=== PATIENT | male | born 1960 | race Caucasian/White ===

== ENCOUNTER 2018-05-12 17:27 | Emergency (ER) | payer OTHER ==
[2018-05-12] MEDS ORDERED: TORAdol 30 mg Injection IM ONE (17:50)
[2018-05-12] MEDS ORDERED: Norflex 60 MG/2 ML IM ONE (17:50)
[2018-05-12] MEDS ORDERED: TORAdol 30 mg Injection ONE (17:52)
[2018-05-12] MEDS ORDERED: Norflex 60 MG/2 ML ONE (17:53)
--- NOTE | 2018-05-12 17:57 | ERPHSYRPT ---
- History of Present Illness Time Seen by Provider: 05/12/18 17:46 Patient Subjective Stated Complaint: PT states "I fell on saturday and ever since then I have had this pain on my right lower back. It feels like the muscles are spasming." Triage Nursing Assessment: Pt alert and oriented X 3, skin pwd. PT ambulates slowly with a stiff upright gait, moaning. Pt able to speakin clear full sentenecs. Pt back has no bruising or swelling noted. Physician History: 58-year-old white male arrives with complaint of pain in his right low thoracic region symptoms for 2 days. According to patient he fell 2 days ago he states since he fell he has been experiencing pain in the right low thoracic region posteriorly feels like a spasm. He denies any urinary symptoms he is not short of breath he is not having pain with deep breathing. Past medical history includes diabetes type 2, osteoarthritis, Lyme disease. Past surgical history right arm surgery. Patient is chronically on hydrocodone 10/325 has filled 60 disease on May 06, 2018 He is also chronically on morphine sulfate extended release 30 mg he filled 60 of these on May 06, 2018 Patient states he has been taking his pain medication. Timing/Duration: day(s), constant Severity: moderate (2 days) Modifying Factors: Improves With: movement Associated Symptoms: No nausea, No vomiting, No abdominal pain, No shortness of breath, No heartburn, No diaphoresis, No cough, No chills, No chest pain, No fever, No headaches, No loss of appetite, No malaise, No rash, No syncope, No seizure, No weakness Allergies/Adverse Reactions: No Known Drug Allergies Allergy (Verified 05/12/18 17:41) Home Medications: Hydrocodone/Acetaminophen [Marlow 10-325 Tablet] 1 each PO BID 03/16/12 [History] Amitriptyline HCl 75 mg PO DAILY 09/21/15 [History] Armodafinil [Nuvigil] 250 mg PO DAILY 09/21/15 [History] Cholecalciferol (Vitamin D3) [Vitamin D] 1,000 unit PO 2XW 09/21/15 [History] Empagliflozin [Jardiance] 25 mg PO DAILY 09/21/15 [History] Liraglutide [Victoza 2-Thee] 1.8 ml PO DAILY 09/21/15 [History] Lisinopril 80 mg PO BID 09/21/15 [History] Morphine Sulfate [Alyson] 30 mg PO BID 09/21/15 [History] Tamsulosin HCl 0.4 mg PO DAILY 09/21/15 [History] Insulin Glulisine [Apidra] 100 unit SQ DAILY 05/12/18 [History] Hx Tetanus, Diphtheria Vaccination/Date Given: No Hx Influenza Vaccination/Date Given: No Hx Pneumococcal Vaccination/Date Given: No Immunizations Up to Date: Yes - Review of Systems Constitutional: No Fever, No Chills Eyes: No Symptoms Ears, Nose, & Throat: No Symptoms Respiratory: No Cough, No Dyspnea Cardiac: No Chest Pain, No Edema, No Syncope Abdominal/Gastrointestinal: No Abdominal Pain, No Nausea, No Vomiting, No Diarrhea Genitourinary Symptoms: No Dysuria Musculoskeletal: Back Pain (pain right low thoracic region for 2 days after falling) Skin: No Rash Neurological: No Dizziness, No Focal Weakness, No Sensory Changes Psychological: No Symptoms Endocrine: No Symptoms All Other Systems: Reviewed and Negative - Past Medical History Pertinent Past Medical History: Yes Neurological History: Other ENT History: No Pertinent History Cardiac History: No Pertinent History Respiratory History: No Pertinent History Endocrine Medical History: Diabetes Type II Musculoskeletal History: Osteoarthritis GI Medical History: No Pertinent History History: No Pertinent History Psycho-Social History: No Pertinent History Male Reproductive Disorders: No Pertinent History Other Medical History: lyme disease. under tx now - Past Surgical History Past Surgical History: Yes Neuro Surgical History: No Pertinent History Cardiac: No Pertinent History Respiratory: No Pertinent History Gastrointestinal: No Pertinent History Genitourinary: No Pertinent History Musculoskeletal: No Pertinent History Male Surgical History: No Pertinent History Other Surgical History: RIGHT ARM SURGERY - Social History Smoking Status: Never smoker Exposure to second hand smoke: No Drug Use: none Patient Lives Alone: No - Nursing Vital Signs Nursing Vital Signs: Initial Vital Signs Temperature 99.1 F 05/12/18 17:36 Pulse Rate 87 05/12/18 17:36 Respiratory Rate 16 05/12/18 17:36 Blood Pressure 180/106 05/12/18 17:36 O2 Sat by Pulse Oximetry 96 05/12/18 17:36 Pain Scale Pain Intensity [] 7 Pain Intensity 4 - Physical Exam General Appearance: mild distress Eye Exam: PERRL/EOMI, eyes nml inspection Ears, Nose, Throat Exam: normal ENT inspection, TMs normal, pharynx normal, moist mucous membranes Neck Exam: normal inspection, non-tender, supple, full range of motion Respiratory Exam: normal breath sounds, lungs clear, No respiratory distress Cardiovascular Exam: regular rate/rhythm, normal heart sounds, normal peripheral pulses Back Exam: normal range of motion, CVA tenderness, other (pain right low thoracicregion posteriorly with palpation), No vertebral tenderness Extremity Exam: normal inspection, normal range of motion, pelvis stable Neurologic Exam: alert, oriented x 3, cooperative, 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, normal mood/affect, nml cerebellar function, nml station & gait, sensation nml, No motor deficits Skin Exam: normal color, warm, dry, No rash Lymphatic Exam: No adenopathy SpO2 Interpretation: normal (96%) SpO2: 96 Oxygen Delivery: Room Air - Course Nursing assessment & vital signs reviewed: Yes - Radiology Exams Chest X-ray Interpretation: Interpreted by me, Negative, No Fracture, No Pneumonia, No Pneumothorax, Other (cxr: no acute disease process noted) Right Ribs X-ray Interpretation: Interpreted by me (no fractures) Ordered Tests: Active Orders 24 hr Category Date Time Status CHEST 1 VIEW (PORTABLE) Stat Exams 05/12/18 17:52 Taken RIBS UNILATERAL Stat Exams 05/12/18 18:29 Taken Medication Summary Discontinued Medications Generic Name Dose Route Start Last Admin Trade Name Isael PRN Reason Stop Dose Admin Ketorolac Tromethamine 60 mg 05/12/18 17:50 05/12/18 17:54 Toradol 30 Mg Injection IM 05/12/18 17:51 60 mg STAT ONE Administration Ketorolac Tromethamine Confirm 05/12/18 17:52 Toradol 30 Mg Injection Administered 05/12/18 17:53 Dose 60 mg .ROUTE .STK-MED ONE Orphenadrine Citrate 60 mg 05/12/18 17:50 05/12/18 17:55 Norflex 60 Mg/2 Ml IM 05/12/18 17:51 60 mg STAT ONE Administration Orphenadrine Citrate Confirm 05/12/18 17:53 Norflex 60 Mg/2 Ml Administered 05/12/18 17:54 Dose 60 mg .ROUTE .STK-MED ONE - Progress Progress: improved Progress Note: 05/12/18 18:47 58-year-old white male with history of diabetes, osteoarthritis, Lyme disease who is on both hydrocodone and morphine for pain secondary to his Lyme disease. Arrives with complaint of pain in his back right posterior thoracic region point tender with palpation occurring with movement. Patient apparently fell 2 days ago prior to the onset of the pain. X-ray of the patient's chest no acute disease processes noted. X-ray right ribs no fractures are noted. Both of these are my read. Patient is given Toradol 60 mg IM and Norflex 60 mg IM with markedly improvement in his pain he states he still has some pain but he is feeling markedly better. Will go ahead and discharge patient with a prescription for Flexeril 10 mg 3 times a day for 5 days. Patient is continue his ibuprofen and morphine ER as prescribed by his family doctor, Patient is also advised to take ibuprofen every 6 hours as needed with food for pain. Patient advised to follow-up with his family doctor - Departure Time of Disposition: 18:50 Departure Disposition: Home Clinical Impression: Accidental fall Qualifiers: Encounter type: initial encounter Qualified Code(s): W19.XXXA - Unspecified fall, initial encounter Back pain Qualifiers: Back pain location: thoracic back pain Chronicity: acute Back pain laterality: right Qualified Code(s): M54.6 - Pain in thoracic spine Condition: Fair Critical Care Time: No Referrals: VIKI PERDUE MD [Primary Care Provider] - Additional Instructions: Return home. Flexeril 10 mg orally 3 times a day for 5 days. Continue hydrocodone and morphine ER as prescribed by your family doctor. ibuprofen every 6 hours as needed for pain with food. Follow-up with your family doctor if symptoms are worse, no better in 48-72 hours, or persist longer than one week. Return for acute distress or for severe symptoms. Prescriptions: Cyclobenzaprine HCl [Flexeril] 10 mg PO TID #15 tablet
[2018-05-12 18:40] VITALS: BP 180/102; PULSE 76
[2018-05-12 18:45] VITALS: O2SAT 96
--- NOTE | 2018-05-13 08:53 | XRAY ---
Indication: Pain following fall. Comparison: None Single frontal chest is inflated and clear. Heart and mediastinal structures within normal limits. Bony thorax intact. Right ribs reported separately.
--- NOTE | 2018-05-13 08:53 | XRAY ---
Indication: Pain following fall. Comparison: None 2 views of the right ribs demonstrates nondisplaced posterior 10th rib fracture and mild acromioclavicular degenerative arthropathy. No other bony, articular, or soft tissue abnormalities. Comment: Fracture not reported on preliminary interpretation by the ER clinician. Telephone report given to Dr. Wilson at 0848 hrs. on May 13, 2018.
== END 2018-05-12 19:11 | disposition home or self-care (01) ==
LOC: ED 17:27
DX: M54.6 Pain in thoracic spine (principal); W19.XXXA Unspecified fall, initial encounter; Z79.899 Other long term (current) drug therapy
CPT/HCPCS: 71045; 71100; 96372; 99284; J1885; J2360

== ENCOUNTER 2020-01-06 09:51 | Day surgery (SDC) | payer OTHER ==
[2020-01-06] MEDS ORDERED: Sensorcaine 0.25% 10 ML IJ ONE (09:52)
[2020-01-06] MEDS ORDERED: Xylocaine 1% Vial 30 ML PF IJ ONE (09:52)
[2020-01-06] MEDS ORDERED: Ketamine HCl 50 MG/ML ONE (10:57)
[2020-01-06] MEDS ORDERED: DIPRIVAN 200 MG/20 ML IV ONE (10:57)
[2020-01-06] MEDS ORDERED: Lactated Ringers 1,000 ML IV ONE (15:17)
--- NOTE | 2020-01-06 16:31 | XRAY ---
53 seconds fluoroscopy time in surgery for left lumbar sympathetic nerve block.
--- NOTE | 2020-01-09 19:05 | XRAY ---
Indication: Left lumbar sympathetic nerve block. Intraoperative fluoroscopy was provided for 53 seconds. 5 digital spot images submitted for interpretation demonstrate posterior needle tip projected anterior left lateral to I believe the L3 segment. A small amount of contrast has been injected for needle tip placement. Correlate with intraoperative findings/report.
== END 2020-01-06 11:30 | disposition home or self-care (01) ==
LOC: SDC-PAIN 09:51
PROVIDERS: ATTEND Psychiatry & Neurology Pain Medicine
DX: G90.522 Complex regional pain syndrome I of left lower limb (principal); E11.9 Type 2 diabetes mellitus without complications; I10 Essential (primary) hypertension; A69.20 Lyme disease, unspecified; G57.93 Unspecified mononeuropathy of bilateral lower limbs; Z79.899 Other long term (current) drug therapy
CPT/HCPCS: 64520; 72100; 77002; 82962; J2001; J2704; Q9966

== ENCOUNTER 2020-02-03 09:03 | Day surgery (SDC) | payer OTHER ==
[2020-02-03] MEDS ORDERED: Xylocaine 1% Vial 30 ML PF IJ ONE (09:04)
[2020-02-03] MEDS ORDERED: Sensorcaine 0.25% 10 ML IJ ONE (09:04)
[2020-02-03] MEDS ORDERED: DIPRIVAN 200 MG/20 ML IV ONE (11:01)
[2020-02-03] MEDS ORDERED: Ketamine HCl 50 MG/ML ONE (11:01)
--- NOTE | 2020-02-03 12:24 | XRAY ---
Indication: Left lumbar sympathetic nerve block. Intraoperative fluoroscopy was provided for 26 seconds. 2 digital spot images submitted for interpretation demonstrates posterior needle tip projecting anterior left lateral to a mid lumbar segment, probably L3. Small amount of contrast injected for needle tip placement. Rin with intraoperative findings/report.
--- NOTE | 2020-02-03 14:36 | XRAY ---
26 seconds of fluoroscopy was used in surgery for a left lumbar sympathetic nerve block.
[2020-02-03] MEDS ORDERED: Lactated Ringers 1,000 ML IV ONE (14:53)
== END 2020-02-03 11:36 | disposition home or self-care (01) ==
LOC: SDC-PAIN 09:03
PROVIDERS: ATTEND Psychiatry & Neurology Pain Medicine
DX: G90.522 Complex regional pain syndrome I of left lower limb (principal); E11.9 Type 2 diabetes mellitus without complications; A69.20 Lyme disease, unspecified; I10 Essential (primary) hypertension; Z79.899 Other long term (current) drug therapy
CPT/HCPCS: 64520; 72100; 77002; 82962; J2001; J2704; Q9966

== ENCOUNTER 2020-02-17 09:53 | Day surgery (SDC) | payer OTHER ==
[~2020-02-17 09:53] MED LIST: DIPRIVAN 200 MG/20 ML IV ONE; Ketamine HCl 50 MG/ML ONE
[2020-02-17] MEDS ORDERED: Xylocaine 1% Vial 30 ML PF IJ ONE (09:54)
[2020-02-17] MEDS ORDERED: Sensorcaine 0.25% 10 ML IJ ONE (09:54)
--- NOTE | 2020-02-17 12:37 | XRAY ---
Indication: Right lumbar sympathetic nerve block. Intraoperative fluoroscopy was provided for 1 minute 10 seconds. 3 digital spot images submitted for interpretation demonstrates posterior needle tip projecting anterior right lateral to a mid lumbar segment, probably L2. Small amount of contrast injected for needle tip placement. Correlate with intraoperative findings/report.
--- NOTE | 2020-02-17 12:49 | XRAY ---
1 minute and 10 seconds fluoroscopy time in surgery for right lumbar sympathetic nerve block.
[2020-02-17] MEDS ORDERED: Lactated Ringers 1,000 ML IV ONE (16:35)
== END 2020-02-17 11:37 | disposition home or self-care (01) ==
LOC: SDC-PAIN 09:53
PROVIDERS: ATTEND Psychiatry & Neurology Pain Medicine
DX: G90.521 Complex regional pain syndrome I of right lower limb (principal); E11.9 Type 2 diabetes mellitus without complications; I10 Essential (primary) hypertension; Z79.899 Other long term (current) drug therapy
CPT/HCPCS: 64520; 72100; 77002; 82962; J2001; J2704; Q9966

== ENCOUNTER 2020-07-27 09:06 | Day surgery (SDC) | payer OTHER ==
[2020-07-27] MEDS ORDERED: Xylocaine 1% Vial 30 ML PF IJ ONE (09:07)
[2020-07-27] MEDS ORDERED: Sensorcaine 0.25% 10 ML IJ ONE (09:07)
[2020-07-27] MEDS ORDERED: Ketamine HCl 50 MG/ML ONE (11:19)
[2020-07-27] MEDS ORDERED: DIPRIVAN 200 MG/20 ML IV ONE (11:19)
--- NOTE | 2020-07-27 12:39 | XRAY ---
Indication: Left lumbar sympathetic nerve block. Intraoperative fluoroscopy was provided 57 seconds. 4 digital spot images submitted for interpretation demonstrates 2 left posterior needle tips projecting anterior to the presumed inferior L2 segment and anterior to the superior L3 segment. Small amount of contrast injected for the L2 needle tip placement. Correlate with intraoperative findings/report.
--- NOTE | 2020-07-27 13:04 | XRAY ---
57 seconds fluoroscopy time in surgery for left lumbar sympathetic nerve block.
[2020-07-27] MEDS ORDERED: Lactated Ringers 1,000 ML IV ONE (15:29)
== END 2020-07-27 11:52 | disposition home or self-care (01) ==
LOC: SDC-PAIN 09:06
PROVIDERS: ATTEND Psychiatry & Neurology Pain Medicine
DX: G90.522 Complex regional pain syndrome I of left lower limb (principal); E11.9 Type 2 diabetes mellitus without complications; I10 Essential (primary) hypertension; G62.9 Polyneuropathy, unspecified; A69.20 Lyme disease, unspecified; Z79.899 Other long term (current) drug therapy
CPT/HCPCS: 64520; 72100; 77002; 82947; 82962; J2001; J2704; Q9966

== ENCOUNTER 2023-07-15 07:55 | Day surgery (SDC) | payer MEDICARE, OTHER ==
[2023-07-15] MEDS ORDERED: Lactated Ringers 1,000 ML IV ONE ×2 (07:59→10:46)
--- NOTE | 2023-07-15 08:22 | HP ---
DATE OF SURGERY: 07/15/2023 HISTORY OF PRESENT ILLNESS: The patient is a 63-year-old had some blood in stools that comes in waves over the past months and some bright occasionally. He had colonoscopy a couple of years ago he had a polyp. Family history negative for colon cancer. Father had some sort of colitis. Some intermittent pain left upper quadrant after he eats. No recent CT scan. PAST MEDICAL HISTORY: Hypertension, depression, anxiety, diabetes mellitus type II, hyperlipidemia. PAST SURGICAL HISTORY: Right arm surgery. MEDICATIONS: Testosterone (Androgel), Pravastatin, losartan, Jardiance, methadone, gabapentin, trazodone, Lexapro. ALLERGIES: NKDA. FAMILY HISTORY: Diabetes, heart disease, arthritis. SOCIAL HISTORY: No smoking or alcohol abuse. REVIEW OF SYSTEMS: Twelve systems reviewed. No chest pain or palpitations. Other systems negative or noncontributory as above and per preadmission questionnaire. PHYSICAL EXAMINATION: Height 6 foot. BMI 37.97. GENERAL: No acute distress. HEENT: Sclerae nonicteric. EOMI. Oral mucous membranes moist. NECK: No JVD. CHEST: Equal excursion, nonlabored breathing. CVS: Regular rate and rhythm. ABDOMEN: Soft. No peritoneal signs. EXTREMITIES: No cyanosis or edema. NEURO: Alert, oriented, moving extremities symmetrically. RECTAL: Deferred timed to endoscopy exam. PSYCH: Appropriate mood and affect. SKIN: Dry. IMPRESSION: Rectal bleeding, some history of left upper quadrant aches, question colitis, question neoplasia, question gastritis or peptic ulcer disease. I recommend EGD and colonoscopy. His insurance will not cover a CT scan at this time. Risks discussed including but not limited to bleeding or infection, risk of bowel injury or perforation possibly requiring further procedure, risk of missed or nondiagnosis or incomplete exam possibly requiring barium enema other studies or procedures. General risk of anesthesia or sedation. Risk of bowel prep but not limited to. Will schedule outpatient under MAC anesthesia EGD and colonoscopy for further evaluation. Otherwise, will continue medications for hypertension, diabetes, lipids and anxiety as an outpatient.
[2023-07-15] MEDS ORDERED: Lactated Ringers 1,000 ML IV SCH (08:30)
[2023-07-15] MEDS ORDERED: HUMULIN R SQ ONE (09:08)
[2023-07-15] MEDS ORDERED: APRESOLINE 20 MG/ML INJ IV ONE (09:09)
[2023-07-15] MEDS ORDERED: APRESOLINE 20 MG/ML INJ ONE (09:18)
[2023-07-15] MEDS ORDERED: HUMULIN R ONE (09:25)
[2023-07-15] MEDS ORDERED: Versed 2 MG/2 ML Injection ONE (10:43)
[2023-07-15] MEDS ORDERED: DIPRIVAN 200 MG/20 ML IV ONE ×5 (10:44→11:33)
[2023-07-15] MEDS ORDERED: Xylocaine-Mpf 2% 5 Ml Vial ONE (10:44)
[2023-07-15 12:06] VITALS: RESP 16
[2023-07-15 12:18] VITALS: BP 143/86; PULSE 83; TEMP 98.8; O2SAT 91
--- NOTE | 2023-07-16 08:38 | OP ---
SURGERY DATE/TIME: 07/15/2023 1047 PREOPERATIVE DIAGNOSIS: History of some polyps, history of some left upper quadrant aches and pain, history of dysphagia, need for upper and lower endoscopy, possible dilatation. POSTOPERATIVE DIAGNOSES: 1) Mild erosive gastritis with petechial hemorrhages. 2) Possible esophageal narrowing and spasm requiring dilatation. 3) Only fair bowel prep (moderate amount of liquidy stool (limiting the exam for very small lesions). 4) ASA Class III. 5) Multiple colon polyps. 6) Withdrawal time approximately 14 minutes. PROCEDURES: 1) EGD with cold biopsy of small bowel to evaluate for celiac sprue. 2) Cold biopsy of antrum to evaluate for Helicobacter pylori. 3) Cold biopsy mid esophagus to evaluate for eosinophilic esophagitis. 4) Proximal esophageal dilatation size 20 balloon. 5) Colonoscopy to cecum. 6) Hot biopsy polypectomy small transverse colon polyp. 7) Hot snare polypectomy of 5 mm cecal polyp. 8) Hot snare polypectomy of 3 to 4 mm transverse colon polyp x2. 9) Hot snare polypectomy 4 mm descending colon polyp x1. 10) Random cold biopsies colon to evaluate for microscopic colitis. SURGEON: Dr. Alek Barnett. ANESTHESIA: MAC. ESTIMATED BLOOD LOSS: Minimal. INDICATIONS: As noted above. Risks and benefits explained in detail and not limited to and consent obtained. DESCRIPTION OF PROCEDURE AND FINDINGS: The patient is taken to the endoscopy. MAC anesthesia introduced. After official time out and no disagreement with planned procedure, bite block positioned. He was having problems with some dysphagia upper esophagus. After official time out and no disagreement with the procedure, MAC anesthesia introduced. Video gastroscope passed down the esophagus. There was some proximal esophageal narrowing and spasm without any evidence of any mass or lesion to biopsy. As he was having symptoms here, it was felt this warranted dilatation at the end of the procedure. Scope passed through around to the junction of the third and fourth portion of the duodenum. Given his symptom complaints, cold biopsy taken to evaluate for celiac disease. Good hemostasis noted. Scope pulled back in the stomach. He did have some small petechial areas of some hemorrhagic tiny erosive gastritis, mild erosive gastritis. Cold biopsy is taken for Helicobacter pylori. On retroflex the gastroesophageal junction is snug against the scope. The scope is straightened. The Z-line was fairly crisp. Random cold biopsies taken of mid esophagus to evaluate for eosinophilic esophagitis. Otherwise given his narrowing, the scope is passed back down in the stomach. Two balloon catheters were tried to pass the scope however they would not pass smoothly. The scope was passed off. The upper scope the balloon catheter was then passed in through. It was then pulled back up through the proximal esophageal narrowed area and gradually inflated first stage 30 seconds, second stage 30 seconds, final stage size 20 balloon dilator left up for two minutes and withdrawn. The balloon catheter was carefully decompressed and withdrawn. The scope much more easily passed through this area. The scope is withdrawn. There is some minimal abrasion on the mucosa. No signs of any full thickness issues or injury. The scope is withdrawn. The patient tolerated this procedure. Attention is then turned to colonoscopy. Digital rectal exam did not reveal any rectal masses. Video colonoscope inserted and passed up through the limited prep colon with large amount of liquidy stool throughout the colon suctioned and irrigated as clear as possible. The scope is able to be passed around to the cecum. Appendiceal orifice and valve well visualized and photo documented. There was a 4 to 5 mm polyp in the cecum that was removed with hot snare polypectomy with brief bursts of cautery. The base appeared to be viable. Good hemostasis noted. The scope is then carefully withdrawn. There were two polyps in the transverse colon removed with hot snare polypectomy measured about 3 to 5 mm in size. Another smaller 2 to 2.5 mm polyp was moved with hot biopsy forceps. Good hemostasis noted. The 4 mm polyp in the proximal descending colon was removed with hot snare polypectomy with brief bursts of cautery. Good hemostasis noted. He had a few small diverticula what appeared to be piecemeal diverticula. There were no signs of large polyps, masses or obstructing lesions. It should be noted that random colon biopsies were taken in the colon for microscopic colitis given his symptoms.
== END 2023-07-15 12:33 | disposition home or self-care (01) ==
LOC: SDC 07:55
PROVIDERS: ATTEND Surgery
DX: Z09 Encounter for follow-up examination after completed treatment for conditions other than malignant neoplasm (principal); Z86.010 Personal history of colon polyps; Z87.19 Personal history of other diseases of the digestive system; E11.9 Type 2 diabetes mellitus without complications; K29.70 Gastritis, unspecified, without bleeding; R23.3 Spontaneous ecchymoses; K22.2 Esophageal obstruction; D12.0 Benign neoplasm of cecum; D12.4 Benign neoplasm of descending colon; D12.3 Benign neoplasm of transverse colon
CPT/HCPCS: 82947; C1726; J0360; J1815; J2250; J2704

== ENCOUNTER 2023-11-23 20:06 | Emergency (ER) | payer MEDICARE ==
[2023-11-23 20:28] VITALS: RESP 24; TEMP 98.4
--- NOTE | 2023-11-23 20:48 | ERPHSYRPT ---
- History of Present Illness Time Seen by Provider: 11/23/23 20:27 Source: patient, family () Exam Limitations: no limitations Patient Subjective Stated Complaint: pt states that his anxiety is through the roof and not able to get it under control Triage Nursing Assessment: pt ambulated into the er; pt is axo x4; pt is anxious; pt is restless, not staying in bed; c/o anxiety; pt c/o anxiety; skin PDW; no respiratory distress present; hypertensive; tachycardic Physician History: Pt states since yesterday he has had anxiety, nasal congestion and has not slept well; today has had 12.5 hours of achy periumbilical pain 5/10 in severity. LBM was today without blood. Pt denies shortness of air, fever, chest pain. Allergies/Adverse Reactions: No Known Drug Allergies Allergy (Verified 11/23/23 20:13) Home Medications: Empagliflozin [Jardiance] 25 mg PO DAILY 09/21/15 [History] Atorvastatin Calcium [Lipitor] 20 mg PO DAILY 11/22/21 [History] Escitalopram Oxalate [Lexapro] 20 mg PO DAILY 11/22/21 [History] Methadone HCl 5 mg PO QID 11/22/21 [History] Trazodone HCl 100 mg PO HS 11/22/21 [History] Gabapentin [Neurontin ] 300 mg PO DAILY 06/24/23 [History] Losartan Potassium 50 mg PO DAILY 06/24/23 [History] Insulin Aspart [Novolog] 10 unit SQ TID 07/15/23 [History] Insulin Degludec [Tresiba Flextouch U-100] 39 unit SQ DAILY 07/15/23 [History] Testosterone Cypionate [Testone Cik] 0.5 ml IM UD 07/15/23 [History] Hydroxyzine HCl 25 mg [Atarax 25 mg] 25 mg PO DAILY PRN 11/23/23 [History] Pravastatin Sodium 20 mg PO DAILY 11/23/23 [History] Tirzepatide [Mounjaro] 5 mg SQ WEEKLY 11/23/23 [History] Hx Tetanus, Diphtheria Vaccination/Date Given: Yes Hx Influenza Vaccination/Date Given: No Hx Pneumococcal Vaccination/Date Given: No Travel Risk - International Travel Have you traveled outside of the country in past 3 weeks: No - Emerging Infectious Disease Are you exhibiting symptoms associated with any current EIDs: No - Review of Systems Constitutional: No Fever Ears, Nose, & Throat: Nose Congestion Respiratory: No Dyspnea Cardiac: No Chest Pain Abdominal/Gastrointestinal: Abdominal Pain, No Nausea, No Vomiting, No Diarrhea Neurological: No Headache Psychological: Anxiety - Past Medical History Pertinent Past Medical History: Yes Neurological History: Other ENT History: No Pertinent History Cardiac History: Hypertension Respiratory History: No Pertinent History Endocrine Medical History: Diabetes Type II Musculoskeletal History: Osteoarthritis GI Medical History: No Pertinent History History: No Pertinent History Psycho-Social History: No Pertinent History Male Reproductive Disorders: No Pertinent History Other Medical History: lyme disease. under tx now, oxygen at 2l hs - Past Surgical History Past Surgical History: Yes Neuro Surgical History: No Pertinent History Cardiac: No Pertinent History Respiratory: No Pertinent History Gastrointestinal: No Pertinent History Genitourinary: No Pertinent History Musculoskeletal: No Pertinent History Male Surgical History: No Pertinent History Other Surgical History: RIGHT ARM SURGERY , cyst removal over right eye - Social History Smoking Status: Never smoker Exposure to second hand smoke: No Drug Use: none Patient Lives Alone: No - Nursing Vital Signs Nursing Vital Signs: Initial Vital Signs Pulse Rate 103 H 11/23/23 20:00 Blood Pressure 126/88 11/23/23 20:00 O2 Sat by Pulse Oximetry 99 11/23/23 20:00 Pain Scale Pain Intensity 0 - Physical Exam General Appearance: alert Eye Exam: PERRL/EOMI Ears, Nose, Throat Exam: moist mucous membranes, TM abnormal (L) (mild erythema of left TM), pharyngeal erythema, other (nasal congestion) Neck Exam: normal inspection Respiratory Exam: lungs clear Cardiovascular Exam: normal heart sounds Gastrointestinal/Abdomen Exam: normal bowel sounds, No tenderness Neurologic Exam: alert, cooperative, other (mildly anxious) Skin Exam: warm, dry SpO2 Interpretation: normal SpO2: 99 O2 Delivery: Room Air - Course Nursing assessment & vital signs reviewed: Yes - Progress Progress Note: 11/23/23 20:46 Pt refuses labs and CT-abd/pel. Counseled pt/family regarding: diagnosis, need for follow-up - Departure Departure Disposition: Home Clinical Impression: LOM (left otitis media), Pharyngitis, Sinusitis, Anxiety Condition: Stable Critical Care Time: No Referrals: VIKI PERDUE MD [Primary Care Provider] - Follow up/PCP as directed Instructions: Anxiety, Adult (DC), Ear Infections in Adults (DC) Additional Instructions: Follow up with private doctor tomorrow. Forms: Work/School Release Form Prescriptions: Azithromycin 250 mg [Zithromax 250 MG TABLET] 250 mg PO ZPACK #6 tablet
[2023-11-23] MEDS ORDERED: Ativan 1 MG ONE (20:55)
[2023-11-23] MEDS ORDERED: Zithromax 250 MG TABLET ONE (20:55)
[2023-11-23] MEDS: Zithromax 250 MG TABLET PO ONE (20:56)
[2023-11-23] MEDS: Ativan 1 MG PO ONE (20:56)
[2023-11-23 21:05] VITALS: BP 193/110; PULSE 99; O2SAT 95
== END 2023-11-23 21:17 | disposition home or self-care (01) ==
LOC: ED 20:06
DX: H66.92 Otitis media, unspecified, left ear (principal); J02.9 Acute pharyngitis, unspecified; J32.9 Chronic sinusitis, unspecified; F41.9 Anxiety disorder, unspecified; R10.33 Periumbilical pain; I10 Essential (primary) hypertension; E11.9 Type 2 diabetes mellitus without complications; Z79.84 Long term (current) use of oral hypoglycemic drugs; Z79.4 Long term (current) use of insulin; Z79.85 Long-term (current) use of injectable non-insulin antidiabetic drugs; Z79.899 Other long term (current) drug therapy
CPT/HCPCS: 99282; A9270-GY

== ENCOUNTER 2023-11-24 08:57 | Emergency (ER) | payer MEDICARE ==
[2023-11-24 09:16] VITALS: TEMP 98.7
[2023-11-24] MEDS ORDERED: PROTONIX 40 MG IV IV ONE (09:30)
[2023-11-24] MEDS ORDERED: Sodium Chloride 0.9% 1000 ML 1,000 ML ONE (09:30)
[2023-11-24] MEDS: PROTONIX 40 MG IV IV ONE (09:31)
[2023-11-24] MEDS: Sodium Chloride 0.9% 1000 ML 1,000 ML IV STA (09:31)
--- NOTE | 2023-11-24 09:33 | ERPHSYRPT ---
- History of Present Illness Time Seen by Provider: 11/24/23 09:28 Historian: patient, family Exam Limitations: no limitations Patient Subjective Stated Complaint: Abdominal pain Triage Nursing Assessment: Patient ambulated back to ED with slow and steady gait and transferred self to bed. Patient A+O X 3. Patient's skin pink, warm and dry. Patient states he was here last night for anxiety and was sent home with PO meds. Patient complains of mid abdominal pain 6/10 and states if he could belch he would feel better. Abdomen soft and round with BS X 4. Patient denies N/V and diarrhea. Patient's states patient has severe anxiety since having COVID and almost . Physician History: Patient is 63-year-old male came to the emergency room with complaining of epigastric and periumbilical area abdominal pain started 2 days ago. Patient was in the emergency room last night was diagnosed with otitis media and was given oral antibiotic and was sent home. 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 He denies any nausea vomiting or diarrhea. Timing/Duration: day(s) (Two days) Activities at Onset: none Quality: cramping Abdominal Pain Onset Location: epigastric, periumbilical Pain Radiation: no radiation Severity of Pain-Max: moderate Severity of Pain-Current: moderate Modifying Factors: Improves With: nothing Associated Symptoms: loss of appetite Previous symptoms: no prior history Body Map: 1 - pain Allergies/Adverse Reactions: No Known Drug Allergies Allergy (Verified 11/24/23 09:04) Home Medications: Empagliflozin [Jardiance] 25 mg PO DAILY 09/21/15 [History] Atorvastatin Calcium [Lipitor] 20 mg PO DAILY 11/22/21 [History] Escitalopram Oxalate [Lexapro] 20 mg PO DAILY 11/22/21 [History] Methadone HCl 5 mg PO QID 11/22/21 [History] Trazodone HCl 100 mg PO HS 11/22/21 [History] Gabapentin [Neurontin ] 300 mg PO DAILY 06/24/23 [History] Losartan Potassium 50 mg PO DAILY 06/24/23 [History] Insulin Aspart [Novolog] 10 unit SQ TID 07/15/23 [History] Insulin Degludec [Tresiba Flextouch U-100] 39 unit SQ DAILY 07/15/23 [History] Testosterone Cypionate [Testone Cik] 0.5 ml IM UD 07/15/23 [History] Hydroxyzine HCl 25 mg [Atarax 25 mg] 25 mg PO DAILY PRN 11/23/23 [History] Pravastatin Sodium 20 mg PO DAILY 11/23/23 [History] Tirzepatide [Mounjaro] 5 mg SQ WEEKLY 11/23/23 [History] Hx Tetanus, Diphtheria Vaccination/Date Given: Yes Hx Influenza Vaccination/Date Given: No Hx Pneumococcal Vaccination/Date Given: No Travel Risk - International Travel Have you traveled outside of the country in past 3 weeks: No - Emerging Infectious Disease Are you exhibiting symptoms associated with any current EIDs: No - Review of Systems Constitutional: No Fever, No Chills Eyes: No Symptoms Ears, Nose, & Throat: No Symptoms Respiratory: No Cough, No Dyspnea Cardiac: No Chest Pain, No Edema, No Syncope Abdominal/Gastrointestinal: Abdominal Pain, No Nausea, No Vomiting, No Diarrhea Genitourinary Symptoms: No Dysuria Musculoskeletal: No Back Pain, No Neck Pain Skin: No Rash Neurological: No Dizziness, No Focal Weakness, No Sensory Changes Psychological: No Symptoms Endocrine: No Symptoms All Other Systems: Reviewed and Negative - Past Medical History Pertinent Past Medical History: Yes Neurological History: Other ENT History: No Pertinent History Cardiac History: Hypertension Respiratory History: No Pertinent History Endocrine Medical History: Diabetes Type II Musculoskeletal History: Osteoarthritis GI Medical History: No Pertinent History History: No Pertinent History Psycho-Social History: No Pertinent History Male Reproductive Disorders: No Pertinent History Other Medical History: lyme disease. under tx now, oxygen at 2l hs - Past Surgical History Past Surgical History: Yes Neuro Surgical History: No Pertinent History Cardiac: No Pertinent History Respiratory: No Pertinent History Gastrointestinal: No Pertinent History Genitourinary: No Pertinent History Musculoskeletal: No Pertinent History Male Surgical History: No Pertinent History Other Surgical History: RIGHT ARM SURGERY , cyst removal over right eye - Social History Smoking Status: Never smoker Exposure to second hand smoke: No Drug Use: none Patient Lives Alone: No - Nursing Vital Signs Nursing Vital Signs: Initial Vital Signs Temperature 98.7 F 11/24/23 09:06 Pulse Rate 103 H 11/24/23 09:06 Respiratory Rate 20 11/24/23 09:06 Blood Pressure 197/100 11/24/23 09:06 O2 Sat by Pulse Oximetry 96 11/24/23 09:06 Pain Scale Pain Intensity 0 - Physical Exam General Appearance: no apparent distress, alert Eye Exam: PERRL/EOMI, eyes nml inspection Ears, Nose, Throat Exam: normal ENT inspection, pharynx normal, moist mucous membranes Neck Exam: normal inspection, non-tender, supple, full range of motion Respiratory Exam: normal breath sounds, lungs clear, No respiratory distress Cardiovascular Exam: regular rate/rhythm, normal heart sounds Gastrointestinal/Abdomen Exam: soft, No tenderness, No mass Back Exam: normal inspection, normal range of motion, No CVA tenderness, No vertebral tenderness Extremity Exam: normal inspection, normal range of motion, pelvis stable Neurologic Exam: alert, oriented x 3, cooperative, normal mood/affect, nml cerebellar function, sensation nml, No motor deficits Skin Exam: normal color, warm, dry SpO2: 96 - Course Nursing assessment & vital signs reviewed: Yes EKG Interpreted by Me: Non-specific ST Changes Rhythm Strip: Normal Sinus Rhythm - CT Exams Abdomen/Pelvis CT Interpretation: Tele-radiologist Report Ordered Tests: Active Orders 24 hr Category Date Time Status EKG-ER Only STAT Care 11/24/23 09:26 Active IV Insertion STAT Care 11/24/23 09:21 Active ABDOMEN AND PELVIS W CONTRAST [CT] Stat Exams 11/24/23 09:27 Completed AMYLASE Stat Lab 11/24/23 09:19 Completed BNPII [NT PRO BNPII] Stat Lab 11/24/23 09:19 Completed CBC W DIFF Stat Lab 11/24/23 09:19 Completed CMP Stat Lab 11/24/23 09:19 Completed LIPASE Stat Lab 11/24/23 09:19 Completed Lactic Acid Stat Lab 11/24/23 09:50 Completed TROPONIN Q4H Lab 11/24/23 09:19 Completed TROPONIN Q4H Lab 11/24/23 13:30 Ordered TROPONIN Q4H Lab 11/24/23 17:30 Ordered UA W/RFX UR CULTURE Stat Lab 11/24/23 09:44 Completed Medication Summary Discontinued Medications Generic Name Dose Route Start Last Admin Trade Name Isael PRN Reason Stop Dose Admin Sodium Chloride 1,000 mls @ 999 mls/hr 11/24/23 09:26 11/24/23 10:34 Sodium Chloride 0.9% 1000 Ml IV 11/24/23 10:26 Infused .Q1H1M STA Infusion Sodium Chloride Confirm 11/24/23 09:30 Sodium Chloride 0.9% 1000 Ml Administered 11/24/23 09:31 Dose 1,000 mls @ ud .ROUTE .STK-MED ONE Pantoprazole Sodium 40 mg 11/24/23 09:26 11/24/23 09:31 Pantoprazole 40 Mg Vial IV 11/24/23 09:27 40 mg STAT ONE Administration Pantoprazole Sodium Confirm 11/24/23 09:30 Pantoprazole 40 Mg Vial Administered 11/24/23 09:31 Dose 40 mg IV .STK-MED ONE Lab/Rad Data: Laboratory Result Diagrams 11/24/23 09:19 11/24/23 09:19 Laboratory Results 11/24/23 11/24/23 11/24/23 Range/Units 09:50 09:44 09:19 WBC (4.0-10.5) x10^3/uL RBC (4.1-5.6) x10^6/uL Hgb (12.5-18.0) g/dL Hct (42-50) % MCV (78-100) fL MCH (26-32) pg MCHC (32-36) g/dL RDW (11.5-14.0) % Plt Count (150-450) x10^3/uL MPV (7.5-11.0) fL Gran % (36.0-66.0) % Immature Gran % (Auto) (0.00-0.4) % Nucleat RBC Rel Count (0.00-0.1) % Eos # (Auto) (0-0.5) x10^3/uL Immature Gran # (Auto) (0.00-0.03) x10^3u/L Absolute Lymphs (auto) (1.0-4.6) x10^3/uL Absolute Monos (auto) (0.0-1.3) x10^3/uL Absolute Nucleated RBC (0.00-0.01) x10^3u/L Lymphocytes % (24.0-44.0) % Monocytes % (0.0-12.0) % Eosinophils % (0.00-5.0) % Basophils % (0.0-0.4) % Absolute Granulocytes (1.4-6.9) x10^3/uL Basophils # (0-0.4) x10^3/uL Sodium (135-145) mmol/L Potassium (3.5-5.1) mmol/L Chloride (98-107) mmol/L Carbon Dioxide (22-30) mmol/L Anion Gap (5-15) MEQ/L BUN (9-20) mg/dL Creatinine (0.66-1.25) mg/dL Estimated GFR ML/MIN Glucose (74-106) mg/dL Lactic Acid 1.4 (0.4-2.0) Calcium (8.4-10.2) mg/dL Total Bilirubin (0.2-1.3) mg/dL AST (17-59) U/L ALT (0-50) U/L Alkaline Phosphatase (38-126) U/L Troponin I (0.000-0.033) ng/mL NT-Pro-B Natriuret Pep 1180 (<300) pg/mL Serum Total Protein (6.3-8.2) g/dL Albumin (3.5-5.0) g/dL Amylase (30-110) U/L Lipase (23-300) U/L Urine Color Yellow (Yellow) Urine Appearance Clear (Clear) Urine pH 5.0 (4.6-8.0) Ur Specific [place] >=1.030 A (1.005-1.030) Urine Protein 300 A (Negative) Urine Glucose (UA) >=1000 A (Negative) mg/dL Urine Ketones 80 A (Negative) Urine Blood Moderate A (Negative) Urine Nitrite Negative (Negative) Urine Bilirubin Negative (Negative) Urine Urobilinogen 0.2 (0.2) mg/dL Ur Leukocyte Esterase Negative (Negative) U Hyaline Cast (Auto) 0-2 (0-2) /LPF Urine Microscopic RBC 0-2 (0-5) /HPF Urine Microscopic WBC 0-2 (0-5) /HPF Ur Epithelial Cells None Seen (None Seen) /HPF Urine Bacteria None Seen (None Seen) /HPF Granular Casts 3-5 A (None Seen) /LPF Urine Culture Reflexed NO (NO) 11/24/23 11/24/23 11/24/23 Range/Units 09:19 09:19 09:19 WBC 8.1 (4.0-10.5) x10^3/uL RBC 5.73 H (4.1-5.6) x10^6/uL Hgb 16.2 (12.5-18.0) g/dL Hct 50.7 H (42-50) % MCV 88.5 (78-100) fL MCH 28.3 (26-32) pg MCHC 32.0 (32-36) g/dL RDW 13.8 (11.5-14.0) % Plt Count 264 (150-450) x10^3/uL MPV 10.2 (7.5-11.0) fL Gran % 76.0 H (36.0-66.0) % Immature Gran % (Auto) 1.1 H (0.00-0.4) % Nucleat RBC Rel Count 0.0 (0.00-0.1) % Eos # (Auto) 0.01 (0-0.5) x10^3/uL Immature Gran # (Auto) 0.09 H (0.00-0.03) x10^3u/L Absolute Lymphs (auto) 0.64 L (1.0-4.6) x10^3/uL Absolute Monos (auto) 1.15 (0.0-1.3) x10^3/uL Absolute Nucleated RBC 0.00 (0.00-0.01) x10^3u/L Lymphocytes % 7.9 L (24.0-44.0) % Monocytes % 14.2 H (0.0-12.0) % Eosinophils % 0.1 (0.00-5.0) % Basophils % 0.7 (0.0-0.4) % Absolute Granulocytes 6.16 (1.4-6.9) x10^3/uL Basophils # 0.06 (0-0.4) x10^3/uL Sodium 134 L (135-145) mmol/L Potassium 4.2 (3.5-5.1) mmol/L Chloride 104 (98-107) mmol/L Carbon Dioxide 19 L (22-30) mmol/L Anion Gap 15.7 H (5-15) MEQ/L BUN 19 (9-20) mg/dL Creatinine 1.17 (0.66-1.25) mg/dL Estimated GFR 70.9 ML/MIN Glucose 229 H (74-106) mg/dL Lactic Acid (0.4-2.0) Calcium 8.7 (8.4-10.2) mg/dL Total Bilirubin 0.50 (0.2-1.3) mg/dL AST 27 (17-59) U/L ALT 24 (0-50) U/L Alkaline Phosphatase 80 (38-126) U/L Troponin I 0.028 (0.000-0.033) ng/mL NT-Pro-B Natriuret Pep (<300) pg/mL Serum Total Protein 6.8 (6.3-8.2) g/dL Albumin 3.9 (3.5-5.0) g/dL Amylase 110 (30-110) U/L Lipase 336 H (23-300) U/L Urine Color (Yellow) Urine Appearance (Clear) Urine pH (4.6-8.0) Ur Specific [place] (1.005-1.030) Urine Protein (Negative) Urine Glucose (UA) (Negative) mg/dL Urine Ketones (Negative) Urine Blood (Negative) Urine Nitrite (Negative) Urine Bilirubin (Negative) Urine Urobilinogen (0.2) mg/dL Ur Leukocyte Esterase (Negative) U Hyaline Cast (Auto) (0-2) /LPF Urine Microscopic RBC (0-5) /HPF Urine Microscopic WBC (0-5) /HPF Ur Epithelial Cells (None Seen) /HPF Urine Bacteria (None Seen) /HPF Granular Casts (None Seen) /LPF Urine Culture Reflexed (NO) CT/ABDOMEN AND PELVIS W CONTRAST CLINICAL HISTORY: epigastric and periumbilical pain COMPARISON: None TECHNIQUE: CT scan of the abdomen was performed with IV contrast. Coronal and sagittal reconstruction. Delayed contrast images were also obtained. 80 CC Isovue 370 was given as an IV contrast. DLP 2724.2 mGy*cm. One of the following dose reduction techniques were utilized for this exam: Automated exposure control, adjustment of the mA and/or kV according to patient size, and use of iterative reconstruction. FINDINGS: The liver is normal size and shape and with regular margins. No focal or diffuse parenchymal abnormality. No hepatic mass is identified. The portal vein, intrahepatic biliary radicals and the bile ducts are normal. Gall bladder is seen average distended with normal wall thickness. multiple small faintly dense small stones/ sludge noted. Common bile appears normal. Pancreas appears normal. No peripancreatic fat stranding, pancreatic pseudocyst or peripancreatic fluid collection. Spleen normal in size, no mass seen. Both adrenal glands are unremarkable. Both kidneys are normal in size, shape, and orientation. No calculi, cyst mass or hydronephrosis seen on either side. Both ureters and urinary bladder appear normal. Enlarged prostate is seen indenting the urinary bladder. Multiple small colonic diverticulosis with no evidence of diverticulitis. Stomach and small bowel loops are unremarkable. Caecum, appendix and ileocecal junction appear normal. The large bowel is unremarkable. No evidence of acute appendicitis. The sigmoid and rectum appear normal. No free peritoneal fluid or air. No evidence of significant enlargement of the mesenteric or retroperitoneal lymph nodes. Visualized thoracic and lumbar spine appear normal. No lytic or sclerotic bone lesions in visualized bones. Basal chest cuts show bilateral parenchymal bands, and middle lobe peripheral calcified 5 mm nodule likely granulomatous. IMPRESSION: Gall bladder stones/ sludge, with no CT evidence of acute cholecystitis. Prostatomegaly. - Progress Progress: improved Counseled pt/family regarding: lab results, diagnosis, need for follow-up (with surgeon for gall bladder removal), rad results Medical Desision Making - Independent Historian Additional History obtained from: Family - Diagnostic Testing Diagnostic test were ordered, analyzed, and reviewed by me: Yes Radiological Interpretation: Interpreted by me, Reviewed by me - Risk of complications Low Risk: Low risk of morbidity from additional dx testing or treatment - Departure Departure Disposition: Home Clinical Impression: Gall bladder stones Condition: Stable Critical Care Time: No Referrals: VIKI PERDUE MD [Primary Care Provider] - Follow up/PCP as directed Instructions: Gallstones (DC), Gallstones ED Additional Instructions: Discharge/Care Plan CHAVEZ BETTY was seen on 11/24/23 in the Emergency Room. The patient was counseled regarding Diagnosis,Lab results, Imaging studies, need for follow up and when to return to the Emergency Room. Prescriptions given: Discharge Note I have spoken with the patient and/or caregivers. I have explained the patient's condition, diagnosis and treatment plan based on the information available to me at this time. I have answered the patient's and/or caregiver's questions and addressed any concerns. The patient and/or caregivers have as good understanding of the patient's diagnosis, condition and treatment plan as can be expected at this point. The vital signs have been stable. The patient's condition is stable and appropriate for discharge from the emergency department. The patient will pursue further outpatient evaluation with the primary care physician or other designated or consulting physician as outlined in the discharge instructions. The patient and/or caregivers are agreeable to this plan of care and follow-up instructions have been explained in detail. The patient and/or caregivers have received these instruction. The patient/and or caregivers are aware that any significant change in condition or worsening of symptoms should prompt an immediate return to this or the closest emergency department or call 911. KATHY SARAVIABETTY MARTINEZ was seen on 11/24/23 n the Emergency Room. At that time you were treated for an emergent condition, during your visit Laboratory, Radiology and/or other procedures may have been ordered. It is very important that you follow-up with your Primary Care Physician VIKI PERDUE within the next 24-48 hours to review your Emergency Room visit and the final results of testing that was ordered. Some test results such as Urine Cultures, Blood Cultures, and other cultures if ordered will not be finalized for 24-48 hours. If you do not have a Primary Care Provider please call the medical records department at [phone] ext [phone] to obtain a copy of your results or you may sign into our patient portal to obtain these results by visiting us @ [email or web address] and completing the following steps: 1. Click on the Patient Portal link 2. Click the Patient Self Enrollment Link to complete the enrollment form and entering your 3. Once the enrollment form is completed you will receive an email with a temporary ID and password at the email address you provided. 4. Next choose a user name and password. Your user name must be at least 4 characters long and your password must be at least 4 characters long. 5. Choose a security question from the list and provide your answer to the question. If you already have signed into the Health Portal you may access your Health Care Information 11/03 by the following steps: 1. Login to our website @ [email or web address] 2. Enter your original user name and password. FAQS The [facility] Health Portal is an online tool that contains your Lab Results, Radiology Reports, Visit History, Discharge Instructions and Health Summary Lab and Radiology Results will not be available for 72 hours on the portal. The Portal is a secure site, passwords are encryted and URLs are re-written so they cannot be copied and pasted. You and authorized family members are the only ones who can access your Portal. Also there is a timeout feature that protects your information if you leave the Portal page open. If you have technical difficulty please use the Contact Us link on the page this will allow you to submit any questions you have regarding the Portal or you may contact the Medical Record Department at [phone] ext [phone]. Outpatient Orders: GALLBLADDER Time Frame: 3 Days, Facility: [facility]. Hosp, Location: RADIOLOGY
[2023-11-24 09:46] LABS: Absolute Neutrophil Ct (ANC) 6.16 x10^3/uL (1.4-6.9); BASOPHIL % 0.7 % (0.0-0.4); Basophil (Absolute #) 0.06 x10^3/uL (0-0.4); Eosinophil % 0.1 % (0.00-5.0); Eosinophil (Absolute #) 0.01 x10^3/uL (0-0.5); Hematocrit 50.7 % (42-50); Hemoglobin 16.2 g/dL (12.5-18.0); IMMATURE GRAN # 0.09 x10^3u/L (0.00-0.03); IMMATURE GRAN % 1.1 % (0.00-0.4); Lymphocyte (Absolute #) 0.64 x10^3/uL (1.0-4.6); Lymphocytes % 7.9 % (24.0-44.0); Mean Cell Volume 88.5 fL (78-100); Mean Corpuscular Hemoglobin 28.3 pg (26-32); Mean Platelet Volume 10.2 fL (7.5-11.0); Monocyte (Absolute #) 1.15 x10^3/uL (0.0-1.3); Monocytes % 14.2 % (0.0-12.0); Platelet Count 264 x10^3/uL (150-450); Red Blood Count 5.73 x10^6/uL (4.1-5.6); Red Cell Distribution Width 13.8 % (11.5-14.0); White Blood Count 8.1 x10^3/uL (4.0-10.5)
[2023-11-24 10:12] LABS: ALBUMIN 3.9 g/dL (3.5-5.0); ANION GAP 15.7 MEQ/L (5-15); BILIRUBIN,TOTAL 0.5 mg/dL (0.2-1.3); Calcium 8.7 mg/dL (8.4-10.2); Creatinine 1 1.17 mg/dL (0.66-1.25); EST GLOMERULAR FILTRATION RATE 70.9 ML/MIN; Potassium 4.2 mmol/L (3.5-5.1); Total Protein 6.8 g/dL (6.3-8.2)
[2023-11-24 10:41] LABS: Appearance Clear (Clear); Bacteria None Seen /HPF (None Seen); Bilirubin Negative (Negative); Blood Moderate (Negative); Epithelial Cells None Seen /HPF (None Seen); Glucose, Urine >=1000 mg/dL (Negative); Ketones 80 (Negative); Leukocyte Esterase Negative (Negative); Nitrite Negative (Negative); Protein,Urine Dip 300 (Negative); RBC 0-2 /HPF (0-5); Specific Gravity >=1.030 (1.005-1.030); Urobilinogen 0.2 mg/dL (0.2); WBC 0-2 /HPF (0-5)
[2023-11-24 10:43] LABS: ADD URINE CULTURE? NO (NO)
[2023-11-24 10:47] LABS: Hyaline Casts 0-2 /LPF (0-2)
[2023-11-24 11:08] VITALS: PULSE 99; RESP 21
--- NOTE | 2023-11-24 11:28 | XRAY ---
CLINICAL HISTORY: epigastric and periumbilical pain COMPARISON: None TECHNIQUE: CT scan of the abdomen was performed with IV contrast. Coronal and sagittal reconstruction. Delayed contrast images were also obtained. 80 CC Isovue 370 was given as an IV contrast. DLP 2724.2 mGy*cm. One of the following dose reduction techniques were utilized for this exam: Automated exposure control, adjustment of the mA and/or kV according to patient size, and use of iterative reconstruction. FINDINGS: The liver is normal size and shape and with regular margins. No focal or diffuse parenchymal abnormality. No hepatic mass is identified. The portal vein, intrahepatic biliary radicals and the bile ducts are normal. Gall bladder is seen average distended with normal wall thickness. multiple small faintly dense small stones/ sludge noted. Common bile appears normal. Pancreas appears normal. No peripancreatic fat stranding, pancreatic pseudocyst or peripancreatic fluid collection. Spleen normal in size, no mass seen. Both adrenal glands are unremarkable. Both kidneys are normal in size, shape, and orientation. No calculi, cyst mass or hydronephrosis seen on either side. Both ureters and urinary bladder appear normal. Enlarged prostate is seen indenting the urinary bladder. Multiple small colonic diverticulosis with no evidence of diverticulitis. Stomach and small bowel loops are unremarkable. Caecum, appendix and ileocecal junction appear normal. The large bowel is unremarkable. No evidence of acute appendicitis. The sigmoid and rectum appear normal. No free peritoneal fluid or air. No evidence of significant enlargement of the mesenteric or retroperitoneal lymph nodes. Visualized thoracic and lumbar spine appear normal. No lytic or sclerotic bone lesions in visualized bones. Basal chest cuts show bilateral parenchymal bands, and middle lobe peripheral calcified 5 mm nodule likely granulomatous. IMPRESSION: Gall bladder stones/ sludge, with no CT evidence of acute cholecystitis. Prostatomegaly. Electronically Signed by: Delma Spence MD. (11/24/2023 11:23:48 EDT)
[2023-11-24 11:36] VITALS: O2SAT 96
[2023-11-24 11:49] VITALS: BP 143/101
== END 2023-11-24 11:50 | disposition home or self-care (01) ==
LOC: ED 08:57
DX: K80.20 Calculus of gallbladder without cholecystitis without obstruction (principal); R10.13 Epigastric pain; R10.33 Periumbilical pain; I10 Essential (primary) hypertension; E11.9 Type 2 diabetes mellitus without complications; Z79.84 Long term (current) use of oral hypoglycemic drugs; Z79.4 Long term (current) use of insulin; Z79.891 Long term (current) use of opiate analgesic; Z79.85 Long-term (current) use of injectable non-insulin antidiabetic drugs; Z79.899 Other long term (current) drug therapy
CPT/HCPCS: 36000; 36415; 74177; 80053; 81001; 82150; 83605; 83690; 83880; 84484; 85025; 93005; 96374; 99284

== ENCOUNTER 2024-02-10 08:19 | Day surgery (SDC) | payer MEDICARE ==
[~2024-02-10 08:19] MED LIST changes: -DIPRIVAN 200 MG/20 ML IV ONE; -Ketamine HCl 50 MG/ML ONE; +Lactated Ringers 1,000 ML IV ONE; +Sensorcaine 0.25% 10 ML ONE
[2024-02-10] MEDS ORDERED: MEFOXIN 2 GM PREMIX** 2 GM/50 ML ML IV ONE (08:30)
[2024-02-10] MEDS ORDERED: Lactated Ringers 1,000 ML IV ONE ×2 (08:30→11:22)
--- NOTE | 2024-02-10 08:30 | HP ---
HISTORY AND PHYSICAL HISTORY OF PRESENT ILLNESS: A 63-year-old with hypertension, depression, anxiety, type 2 diabetes, hyperlipidemia. He did have an ultrasound showing sludge. Had a 3% ejection fraction. Epigastric pain, some nausea, some explosive diarrhea, no vomiting. Denied any liver problems. HOME MEDICATIONS: Testosterone, Prograf, pravastatin, losartan, Jardiance, methadone, gabapentin, trazodone, Lexapro. ALLERGIES: No known drug allergies. PAST SURGICAL HISTORY: He has had arm surgery in the past, endoscopy in the past. SOCIAL HISTORY: No smoking or alcohol abuse. FAMILY HISTORY: Diabetes, heart disease, arthritis. REVIEW OF SYSTEMS: Twelve systems reviewed. No chest pain or palpitations. Other systems negative or noncontributory as above and per preadmission questionnaire. PHYSICAL EXAMINATION: GENERAL: Height: 6 feet, BMI 37.3. No acute distress. HEENT: Anicteric sclerae. NECK: No JVD. CARDIOVASCULAR: Regular rate and rhythm. CHEST: Equal excursion, nonlabored breathing. ABDOMEN: Soft. SKIN: Dry. EXTREMITIES: No cyanosis or edema. NEUROLOGIC: Alert and oriented, moving extremities symmetrically. PSYCHIATRIC: Appropriate mood and affect. IMPRESSION: Acute exacerbation of chronic cholecystitis, symptomatic biliary dyskinesia. Recommend cholecystectomy. Risks explained in detail but not limited to bleeding or infection, risk of bowel injury or perforation, risk of stone or sludge impacting the bile duct possibly requiring either ERCP or open procedure, risk of anesthesia, DVT, PE, pneumonia, perioperative risk of aches and pains, bloating, constipation or loose stools possibly chronic in nature, risk of no improvement of preoperative symptoms, possibly requiring further workup and/or studies or endoscopy or other referrals. Otherwise, we will continue medications for anxiety, hypertension, hyperlipidemia, diabetes. We will proceed with lap lila or possible open as an outpatient.
[2024-02-10] MEDS: MEFOXIN 2 GM PREMIX** 2 GM/50 ML ML IV SCH (08:36)
[2024-02-10] MEDS: Lactated Ringers 1,000 ML IV SCH (08:36)
[2024-02-10 08:58] VITALS: RESP 18
[2024-02-10] MEDS ORDERED: Versed 2 MG/2 ML Injection ONE (10:28)
[2024-02-10] MEDS ORDERED: DIPRIVAN 200 MG/20 ML IV ONE (10:29)
[2024-02-10] MEDS ORDERED: Reglan 10 MG/2 ML ONE (10:31)
[2024-02-10] MEDS ORDERED: Quelicin Fliptop 200 MG/10 ML ONE (10:31)
[2024-02-10] MEDS ORDERED: ROCURONIUM BROMIDE IV ONE ×2 (10:31→11:21)
[2024-02-10] MEDS ORDERED: Zofran 4 MG/2 ML VIAL ONE (10:31)
[2024-02-10] MEDS ORDERED: Ketamine HCl 50 MG/ML ONE ×2 (10:34→11:18)
[2024-02-10] MEDS ORDERED: OFIRMEV 100 ML IV ONE (10:39)
[2024-02-10] MEDS ORDERED: SUBLIMAZE 100 MCG/2 ML ONE ×2 (11:08→12:12)
[2024-02-10] MEDS ORDERED: BRIDION 200MG/2ML IV ONE (11:23)
[2024-02-10] MEDS ORDERED: Hydromorphone 1 mg/ml Injection ONE ×2 (12:07→12:42)
[2024-02-10 13:20] VITALS: O2SAT 94
[2024-02-10 13:42] VITALS: BP 153/88; PULSE 78; TEMP 98.1
--- NOTE | 2024-02-11 18:11 | OP ---
SURGERY DATE/TIME: 02/10/2024 1779 - 4005 PREOPERATIVE DIAGNOSIS: Acute exacerbation of chronic cholecystitis and symptomatic biliary dyskinesia. POSTOPERATIVE DIAGNOSIS: Acute exacerbation of chronic cholecystitis and symptomatic biliary dyskinesia. PROCEDURE: Laparoscopic cholecystectomy. SURGEON: Jamar Barnett MD ANESTHESIA: General. ESTIMATED BLOOD LOSS: Minimal. INDICATIONS: As noted above. Risks and benefits explained in detail, but not limited to. Consent obtained. DESCRIPTION OF PROCEDURE AND FINDINGS: Patient was taken to the operating room. General anesthesia was induced. Prepped and draped in usual sterile fashion. After official time-out, no disagreement in planned procedure, transverse incision made at the supraumbilical area. Fascia grasped. It was necessary, given his girth, to use the longer Veress needle. However, with this, this seemed to be still trying to insufflate the preperitoneal space. Therefore, I elected to place the needle along the costal margin on the left side. Good drop test was noted. Insufflation was accomplished with opening pressure of 1-15. With this accomplished, the 5 mm bladeless port and camera inserted without difficulty in the right upper quadrant, carefully looking back at the original Veress needle site. No signs of any issues or injuries secondary to initial Veress needle placement. A 5 mm port was placed in the supraumbilical area and the camera was redirected through here and then directed up toward the left upper quadrant. Veress needle was in a nice free spot and no evidence of issues or injuries secondary to Veress needle or trocar placement. Another 5 mm right upper quadrant port was placed and an 11 mm epigastric port. There was no evidence of any intraabdominal injury secondary to trocar insertion. Gallbladder had some chronic inflammation and omental adhesions. Dissected posterior, lateral to anterior fashion slowly carefully the cystic duct and infundibular junction slowly, carefully well skeletonized until the critical view was obtained anteriorly and posteriorly. Once this was accomplished, cystic duct/cystic artery clipped x3 and divided in the usual fashion. There was more of a lateral cystic artery as well, branched, and necessary to isolate this, clipped x3 and divided. Gallbladder was slowly, carefully dissected free from its dense attachments to the liver bed. It was quite vascular, requiring clipping of additional oozing side branches off the cystic artery and cystic vein directly along the gallbladder wall as necessary. The gallbladder was slowly carefully dissected free just up towards the anterior edge of the liver. It was a quite distended gallbladder. Just prior to freeing the final attachments, the clips were noted to be in place in the cystic duct/cystic artery stumps. No signs of any active bleeding or bile leakage from the liver bed itself. The gallbladder was then freed and placed in a provided sack. However, it was so large it would not quite fit in the sack and just placed it in there. It seeped a little bit of bile. There was no evidence of any stone or sludge spillage. A small amount of bile spilled out of the sack. With copious irrigation, irrigated clear. Gallbladder was decompressed as well as possible, pulled up in the epigastrium where it was eventually pulled free and then the sack was pulled out. This 11 mm fascial defect closed with puncture closure device with #1 Vicryl. A copious amount of irrigation accomplished lateral to the liver and subhepatic space irrigating clear. Clips noted to be in place in cystic duct and cystic artery stumps. No signs of any active bleeding or bile leakage. It was felt there was no need for drain placement. At this point, the pneumoperitoneum is decompressed. Wounds irrigated out. Skin incision closed with 4-0 Vicryl. Steri-Strips and sterile dressing applied. The patient tolerated the procedure well. There was no family initially. I spoke with the family later when they arrived.
== END 2024-02-10 13:50 | disposition home or self-care (01) ==
LOC: SDC 08:19
PROVIDERS: ATTEND Surgery
DX: K80.12 Calculus of gallbladder with acute and chronic cholecystitis without obstruction (principal); K82.8 Other specified diseases of gallbladder; E11.9 Type 2 diabetes mellitus without complications
CPT/HCPCS: 82947; J0330; J0694; J1170; J2250; J2405; J2704; J3010